=== PATIENT | male | born 1975 | race Caucasian/White ===

== ENCOUNTER 2017-04-29 06:01 | Emergency (ER) | payer OTHER ==
[2017-04-29] MEDS ORDERED: Acetaminophen/Codeine 30-300mg Tablet ONE (06:28)
== END 2017-04-29 06:24 | disposition home or self-care (01) ==
LOC: BURERS 06:01
DX: K02.9 Dental caries, unspecified (principal); E78.00 Pure hypercholesterolemia, unspecified; F31.9 Bipolar disorder, unspecified; F17.210 Nicotine dependence, cigarettes, uncomplicated
CPT/HCPCS: 99282

== ENCOUNTER 2018-12-29 12:27 | Emergency (ER) | payer OTHER ==
[2018-12-29] MEDS ORDERED: HYDROcodone/Acetaminophen 10/325 mg Tablet ONE (12:44)
[2018-12-29] MEDS ORDERED: AMOXicillin 250 MG CAP ONE (12:45)
== END 2018-12-29 12:55 | disposition home or self-care (01) ==
LOC: BURERS 12:27
DX: K02.9 Dental caries, unspecified (principal); F17.210 Nicotine dependence, cigarettes, uncomplicated
CPT/HCPCS: 99282

== ENCOUNTER 2019-08-31 15:50 | Emergency (ER) | payer OTHER | END 2019-08-31 16:35 | disposition home or self-care (01) | LOC: BURERS 15:50 | DX: K02.9 Dental caries, unspecified (principal); I10 Essential (primary) hypertension; F17.210 Nicotine dependence, cigarettes, uncomplicated | CPT/HCPCS: 99282 ==

== ENCOUNTER 2022-05-10 09:56 | Outpatient (CLI) | payer OTHER | END 2022-05-10 09:57 | disposition home or self-care (01) | LOC: BURRAD 09:56 | PROVIDERS: ATTEND Family Medicine | DX: M25.511 Pain in right shoulder (principal); M19.011 Primary osteoarthritis, right shoulder ==

== ENCOUNTER 2023-02-27 11:04 | Emergency (ER) | payer OTHER ==
[2023-02-27] MEDS ORDERED: Meclizine HCl 25 MG TAB ONE (11:31)
[2023-02-27 12:01] LABS: #Basophils 0.1 thou/uL (0.0-0.2); #Eosinphils 0.4 thou/uL (0.0-0.7); #Lymphocytes 2.4 thou/uL (1.20-3.40); #Monocytes 0.5 thou/uL (0.11-0.59); #Neutrophils 4.7 thou/uL (1.40-6.50); %Basophils 0.8 % (0.0-1.0); %Lymphocytes 30.1 % (21.0-51.0); %Monocytes 6.5 % (0.0-10.0); %Neutrophils 57.6 % (42.0-75.0); Hemoglobin 15.7 g/dL (14.0-18.0); Mean Corpuscular Hemoglobin 28.4 pg (27.0-31.0); Mean Corpuscular Volume 88.8 fl (78.0-98.0); Mean Platelet Volume 7.7 fL (7.4-10.4); Platelet Count 233 10x3/uL (130-400); RBC Distribution Width 13.8 % (11.5-14.5); Red Blood Cell (RBC) Count 5.53 mill/uL (4.70-6.10); White Blood Cell (WBC) Count 8.1 10x3/uL (4.8-10.8)
[2023-02-27 12:03] LABS: ALT (SGPT) 95 U/L (8-55); AST (SGOT) 66 U/L (5-34); Albumin 4.4 g/dL (3.5-5.0); Alkaline Phosphatase 80 U/L (40-110); Anion Gap 9 mmol/L (10-20); BUN (Urea Nitrogen) 9 mg/dL (8.9-20.6); Bilirubin, Total 0.3 mg/dL (0.2-1.2); Calc. Creatinine Clearance 0 mL/min (70-130); Calcium 9.4 mg/dL (7.8-10.44); Carbon Dioxide 30 mmol/L (22-29); Chloride 107 mmol/L (98-107); Estimated GFR 108; Globulin 2.9 g/dL (2.4-3.5); Glucose 100 mg/dL (70-105); Potassium 3.7 mmol/L (3.5-5.1); Protein, Total 7.3 g/dL (6.0-8.3); Sodium 142 mmol/L (136-145)
== END 2023-02-27 12:54 | disposition home or self-care (01) ==
LOC: BURERS 11:04
DX: H81.10 Benign paroxysmal vertigo, unspecified ear (principal); M25.512 Pain in left shoulder; I10 Essential (primary) hypertension; F17.210 Nicotine dependence, cigarettes, uncomplicated; Z79.899 Other long term (current) drug therapy; E78.5 Hyperlipidemia, unspecified
CPT/HCPCS: 36415; 71045; 80053; 84484; 85025

== ENCOUNTER 2024-01-11 10:53 | Outpatient (CLI) | payer OTHER | END 2024-01-11 10:54 | disposition home or self-care (01) | LOC: BURRAD 10:53 | PROVIDERS: ATTEND Nurse Practitioner Family | DX: M25.511 Pain in right shoulder (principal); M19.011 Primary osteoarthritis, right shoulder ==